=== PATIENT | female | born 1940 | race Caucasian/White ===

== ENCOUNTER 2020-09-30 12:43 | Day surgery (SDC) | payer MEDICARE, BC ==
[2020-09-29 09:43] VITALS: BMI 31.8
[2020-09-30] MEDS ORDERED: Lidocaine 1% MPF 2 ML VIAL ONE (14:14)
[2020-09-30] MEDS ORDERED: PROPOFOL 20 ML ONE (15:57)
[2020-09-30] MEDS ORDERED: Fentanyl 100 MCG/2 ML VIAL ONE (15:58)
[2020-09-30] MEDS ORDERED: Lidocaine 1% PF 5 ML VIAL ONE (15:58)
[2020-09-30] MEDS ORDERED: diphenhydrAMINE 50 MG/ML VIAL ONE (15:58)
[2020-09-30] MEDS ORDERED: Ondansetron PF 4 MG/2 ML Vial ONE (15:58)
[2020-09-30] MEDS ORDERED: Bupivacaine 0.25% HCL 30 ML VIAL ONE ×2 (16:06→16:10)
[2020-09-30] MEDS ORDERED: Triple Antibiotic Oint 1 GM Packet ONE ×2 (16:07→16:08)
[2020-09-30] MEDS ORDERED: EPINEPHrine 1 MG/ML AMP ONE (16:07)
[2020-09-30] MEDS ORDERED: Tranexamic Acid 1,000 MG/10 ML VIAL ONE (16:32)
[2020-09-30] MEDS ORDERED: Glycopyrrolate 0.2 MG/ML 5 ML SYRINGE ONE (16:42)
[2020-09-30] MEDS ORDERED: PHENYLEPHRINE-NS 100 MCG/ML 10 ML SYRINGE ONE (17:38)
== END 2020-09-30 19:42 | disposition home or self-care (01) ==
LOC: CSHSDC 12:43
PROVIDERS: ATTEND Plastic Surgery
DX: M95.2 Other acquired deformity of head (principal); C43.30 Malignant melanoma of unspecified part of face; I10 Essential (primary) hypertension; E11.9 Type 2 diabetes mellitus without complications
CPT/HCPCS: 36416; J0171; J0690; J1200; J2405; J2704; J3010; S0020

== ENCOUNTER 2024-01-10 11:48 | Outpatient (CLI) | payer MEDICARE, BC | END 2024-01-10 11:49 | disposition home or self-care (01) | LOC: CSHWCC 11:48 | PROVIDERS: ATTEND Nurse Practitioner Family | DX: Z43.2 Encounter for attention to ileostomy (principal); E11.622 Type 2 diabetes mellitus with other skin ulcer; T81.31XD Disruption of external operation (surgical) wound, not elsewhere classified, subsequent encounter; L24.B1 Irritant contact dermatitis related to digestive stoma or fistula; I50.22 Chronic systolic (congestive) heart failure; C18.9 Malignant neoplasm of colon, unspecified | CPT/HCPCS: 11042 ==

== ENCOUNTER 2024-01-17 12:37 | Outpatient (CLI) | payer MEDICARE, BC | END 2024-01-17 12:38 | disposition home or self-care (01) | LOC: CSHWCC 12:37 | PROVIDERS: ATTEND Nurse Practitioner Family | DX: Z43.2 Encounter for attention to ileostomy (principal); T81.31XD Disruption of external operation (surgical) wound, not elsewhere classified, subsequent encounter; E11.622 Type 2 diabetes mellitus with other skin ulcer; L98.499 Non-pressure chronic ulcer of skin of other sites with unspecified severity; I50.22 Chronic systolic (congestive) heart failure; C18.9 Malignant neoplasm of colon, unspecified; L24.B1 Irritant contact dermatitis related to digestive stoma or fistula | CPT/HCPCS: 11042; 11045 ==

== ENCOUNTER 2024-01-24 12:58 | Outpatient (CLI) | payer MEDICARE, BC | END 2024-01-24 12:59 | disposition home or self-care (01) | LOC: CSHWCC 12:58 | PROVIDERS: ATTEND Nurse Practitioner Family | DX: Z43.2 Encounter for attention to ileostomy (principal); T81.31XD Disruption of external operation (surgical) wound, not elsewhere classified, subsequent encounter; E11.622 Type 2 diabetes mellitus with other skin ulcer; L98.499 Non-pressure chronic ulcer of skin of other sites with unspecified severity; L24.B1 Irritant contact dermatitis related to digestive stoma or fistula; I50.22 Chronic systolic (congestive) heart failure; C18.9 Malignant neoplasm of colon, unspecified | CPT/HCPCS: 11042 ==

== ENCOUNTER 2024-01-29 08:57 | Outpatient (CLI) | payer MEDICARE, BC | END 2024-01-29 08:58 | disposition home or self-care (01) | LOC: CSHWCC 08:57 | PROVIDERS: ATTEND Nurse Practitioner Family | DX: Z43.2 Encounter for attention to ileostomy (principal); T81.31XD Disruption of external operation (surgical) wound, not elsewhere classified, subsequent encounter; E11.622 Type 2 diabetes mellitus with other skin ulcer; L98.499 Non-pressure chronic ulcer of skin of other sites with unspecified severity; L24.B1 Irritant contact dermatitis related to digestive stoma or fistula; I50.22 Chronic systolic (congestive) heart failure; C18.9 Malignant neoplasm of colon, unspecified | CPT/HCPCS: 11042 ==

== ENCOUNTER 2024-02-06 08:48 | Outpatient (CLI) | payer MEDICARE, BC | END 2024-02-06 08:49 | disposition home or self-care (01) | LOC: CSHWCC 08:48 | PROVIDERS: ATTEND Family Medicine | DX: Z43.2 Encounter for attention to ileostomy (principal); T81.31XD Disruption of external operation (surgical) wound, not elsewhere classified, subsequent encounter; E11.622 Type 2 diabetes mellitus with other skin ulcer; L98.499 Non-pressure chronic ulcer of skin of other sites with unspecified severity; L24.B1 Irritant contact dermatitis related to digestive stoma or fistula; I50.22 Chronic systolic (congestive) heart failure; C18.9 Malignant neoplasm of colon, unspecified | CPT/HCPCS: 11042; G0463; 99212 ==

== ENCOUNTER 2024-02-13 11:22 | Outpatient (CLI) | payer MEDICARE, BC | END 2024-02-13 11:23 | disposition home or self-care (01) | LOC: CSHWCC 11:22 | PROVIDERS: ATTEND Nurse Practitioner Family | DX: T81.31XD Disruption of external operation (surgical) wound, not elsewhere classified, subsequent encounter (principal); Z43.2 Encounter for attention to ileostomy; E11.622 Type 2 diabetes mellitus with other skin ulcer; L98.499 Non-pressure chronic ulcer of skin of other sites with unspecified severity; I50.22 Chronic systolic (congestive) heart failure; C18.9 Malignant neoplasm of colon, unspecified; L24.B1 Irritant contact dermatitis related to digestive stoma or fistula | CPT/HCPCS: 99212; G0463 ==

== ENCOUNTER 2024-02-27 09:38 | Outpatient (CLI) | payer MEDICARE, BC | END 2024-02-27 09:39 | disposition home or self-care (01) | LOC: CSHWCC 09:38 | PROVIDERS: ATTEND Nurse Practitioner Family | DX: Z43.2 Encounter for attention to ileostomy (principal); C18.9 Malignant neoplasm of colon, unspecified; I50.22 Chronic systolic (congestive) heart failure; Z87.2 Personal history of diseases of the skin and subcutaneous tissue | CPT/HCPCS: 99212; G0463 ==

== ENCOUNTER 2024-03-02 08:53 | Outpatient (CLI) | payer MEDICARE, BC | END 2024-03-02 08:54 | disposition home or self-care (01) | LOC: CSHCT 08:53 | PROVIDERS: ATTEND Internal Medicine | DX: Z85.038 Personal history of other malignant neoplasm of large intestine (principal); C20 Malignant neoplasm of rectum; D50.8 Other iron deficiency anemias | CPT/HCPCS: 36415; 71260; 74177; 82565 ==

== ENCOUNTER 2024-09-29 13:06 | Outpatient (CLI) | payer MEDICARE, BC | END 2024-09-29 13:07 | disposition home or self-care (01) | LOC: CSHWCC 13:06 | PROVIDERS: ATTEND Nurse Practitioner Family | DX: Z43.2 Encounter for attention to ileostomy (principal); E11.621 Type 2 diabetes mellitus with foot ulcer; L89.613 Pressure ulcer of right heel, stage 3; C18.9 Malignant neoplasm of colon, unspecified; I50.22 Chronic systolic (congestive) heart failure; L24.B1 Irritant contact dermatitis related to digestive stoma or fistula | CPT/HCPCS: 97597 ==